=== PATIENT | male | born 1975 | race Caucasian/White ===

== ENCOUNTER 2021-10-20 06:00 | Outpatient (RCR) | payer OTHER, SELFPAY | END 2021-10-20 23:59 | disposition home or self-care (01) | LOC: SOT 06:00 | PROVIDERS: Referring Provider Family Medicine; Visit Provider Family Medicine | DX: M79.642 Pain in left hand (principal) | CPT/HCPCS: 97165 ==

== ENCOUNTER 2021-10-21 06:00 | Outpatient (RCR) | payer SELFPAY | END 2021-11-19 23:59 | disposition home or self-care (01) | LOC: SOT 06:00 | PROVIDERS: Referring Provider Family Medicine; Visit Provider Family Medicine | DX: M79.642 Pain in left hand (principal) | CPT/HCPCS: 97018; 97022; 97035; 97110; 97140 ==